=== PATIENT | female | born 1950 | race Caucasian/White ===

== ENCOUNTER 2019-04-06 15:54 | Observation (INO) | payer MEDICARE ==
[~2019-04-06] VITALS: Ht 162.6 cm; Wt 120.2 kg
[~2019-04-06 15:54] MED LIST: ALBU90OI INH; BUSP15 PO; CENTRUM SILVER1 EAC2 PO; CLOB.05TC TOP; CONESTTC VAG; DILTIAZEM 24HR180 MG PO; ENOX40I SC; Estradiol1 MG PO; LOSHYD PO; METR70GEL VAG; OMEP20ER PO; OXYB5 PO; ROXICODONE5 MG PO; SOLI5 PO; SUCR1 PO; TRIA80TC TOP; Zofran Odt4 MG SL
[2019-04-06 16:35] LABS: BASOPHILS ABSOLUTE AUTO 0.03 K/mm3 (0.00-0.23); BASOPHILS PERCENT AUTO 1 % (0-2); EOSINOPHILS ABSOLUTE AUTO 0.07 K/mm3 (0.00-0.68); EOSINOPHILS PERCENT AUTO 2 % (0-6); Hematocrit 45.3 % (33.0-51.0); Hemoglobin 15.2 g/dL (11.5-16.0); IMMATURE GRAN ABSOLUTE AUTO 0.01 K/mm3 (0.00-0.10); IMMATURE GRAN PERCENT AUTO 0 % (0-1); LYMPHOCYTES ABSOLUTE AUTO 0.63 K/mm3 (0.84-5.20); LYMPHOCYTES PERCENT AUTO 16 % (21-46); MONOCYTES PERCENT AUTO 10 % (4-13); Mean Corpuscular HGB 31.5 pg (26.0-34.0); Mean Corpuscular HGB Conc 33.6 g/dL (31.5-36.5); Mean Corpuscular Volume 94 fL (80-100); NEUTROPHILS ABSOLUTE AUTO 2.93 K/mm3 (1.96-9.15); NEUTROPHILS PERCENT AUTO 72 % (41-73); Platelet Count 248 K/mm3 (150-400); RDW Coefficient Variation 13.1 % (11.7-14.2); RDW Standard Deviation 45.3 fL (35.1-46.3); Red Blood Cell Count 4.82 M/mm3 (3.80-5.20); White Blood Cell Count 4.07 K/mm3 (4.00-11.30)
[2019-04-06 17:02] LABS: Source, Urine Clean Catch
[2019-04-06 17:07] LABS: Bilirubin, Urine Neg (Neg); Blood, Urine 1+ (Neg); Glucose Qualitative, Urine Neg (Neg); Ketones, Urine Neg (Neg); Leukocyte Esterase, Urine 1+ (Neg); Nitrite, Urine Neg (Neg); Protein, Urine Neg (Neg); Urobilinogen, Urine NORM (Normal)
[2019-04-06 17:17] LABS: Appearance, Urine Clear (Clear); Color, Urine Yellow (P-Yellow)
[2019-04-06 17:18] LABS: Alanine Aminotransfer (ALT/SGP 20 U/L (12-78); Albumin/Globulin Ratio 0.8 (0.8-1.8); Alk Phos 110 U/L (50-136); Anion Gap 2 mmol/L (6-16); Aspartate Aminotrans (AST/SGOT 16 U/L (12-37); Bilirubin, Total 0.3 mg/dL (0.1-1.0); Blood Urea Nitrogen 14 mg/dL (8-24); Bun/Creatinine Ratio 16.9 (12.0-20.0); CO2, Blood 32 mmol/L (21-32); Calcium, Blood 8.7 mg/dL (8.5-10.1); Chloride, Blood 107 mmol/L (98-108); Creatinine, Blood 0.83 mg/dL (0.40-1.00); Globulin, Blood 3.6 g/dL (2.2-4.0); Glomerular Filtration Rate >60 (60-); Glucose, Blood 175 mg/dL (70-99); Potassium, Blood 3.5 mmol/L (3.5-5.5); Sodium, Blood 141 mmol/L (136-145); Total Protein, Blood 6.6 g/dL (6.4-8.2)
[2019-04-06 17:19] LABS: Bacteria Mod /hpf; Squamous Epithelial Cells Few /hpf (Few)
[2019-04-06 17:22] LABS: U Amphetamine Screen Not Detected; U Barbituate Screen Not Detected; U Benzodiazapine Screen DETECTED; U Cannabinoids Screen DETECTED; U Cocaine Screen Not Detected; U Methadone Screen Not Detected; U Methamphetamine Screen Not Detected; U Opiates Screen Not Detected; U Phencyclidine Screen Not Detected
[2019-04-06 17:23] LABS: U Buprenorphine Screen Not Detected; U Oxycodone Screen Not Detected; U Propoxyphene Screen Not Detected
[2019-04-06 17:28] LABS: Troponin I <0.015 ng/mL (0.000-0.040)
[2019-04-06] MEDS ORDERED: PANT40 PO (17:34)
[2019-04-06] MEDS ORDERED: DESVENLAFAXINE100 M2 PO (17:34)
[2019-04-06] MEDS ORDERED: DILT180 PO (17:35)
[2019-04-06] MEDS ORDERED: LOSARTAN-HCTZ1 EAC2 PO (17:35)
[2019-04-06] MEDS ORDERED: TEMA15 PO (17:36)
[2019-04-06] MEDS ORDERED: AMIT25 PO (17:37)
[2019-04-06] MEDS ORDERED: Oxybutynin Chlo10 MG PO (18:39)
[2019-04-07 04:19] LABS: Hematocrit 41.9 % (33.0-51.0); Hemoglobin 13.9 g/dL (11.5-16.0); Mean Corpuscular HGB 31.5 pg (26.0-34.0); Mean Corpuscular HGB Conc 33.2 g/dL (31.5-36.5); Mean Corpuscular Volume 95 fL (80-100); Mean Platelet Volume 10.9 fL (9.1-12.4); Platelet Count 236 K/mm3 (150-400); RDW Coefficient Variation 13.2 % (11.7-14.2); RDW Standard Deviation 46.4 fL (35.1-46.3); Red Blood Cell Count 4.41 M/mm3 (3.80-5.20); White Blood Cell Count 5.06 K/mm3 (4.00-11.30)
[2019-04-07 04:50] LABS: Anion Gap 6 mmol/L (6-16); Blood Urea Nitrogen 16 mg/dL (8-24); Bun/Creatinine Ratio 20.9 (12.0-20.0); CO2, Blood 29 mmol/L (21-32); Calcium, Blood 8.7 mg/dL (8.5-10.1); Chloride, Blood 105 mmol/L (98-108); Creatinine, Blood 0.77 mg/dL (0.40-1.00); Glomerular Filtration Rate >60 (60-); Glucose, Blood 99 mg/dL (70-99); Potassium, Blood 3.6 mmol/L (3.5-5.5); Sodium, Blood 140 mmol/L (136-145)
--- NOTE | 2019-04-07 06:30 | NUR ---
PATIENT STATES SHE HAS ANXIETY. PATIENT STRUGGLING TO SLEEP IN NEW PLACE. PATIENT PLEASANT AND TALKITIVE WITH STAFF. VITALS STABLE CURRENTLY IN SINUS RHYTHM. PATIENT STATES SHE FEELS FLUTTERS IN HER CHEST FREQUENTLY.
--- NOTE | 2019-04-07 08:03 | NUR ---
NURSING PCU DAYSHIFT: Assumed care of pt at approx 0700. A/O, pleasant, cooperative w/care. Denies any pain/discomfort at rest, no noted weakness. Ambulates independently and w/o difficulty. Tele in place, NSR, no c/o CP/pressure, SBP 150's prior to a.m. meds, no noted edema. L/S cta t/o, denies dyspea, O2 sat upper 90's on RA, no noted cough. Abd SNT, BT+, voiding w/o difficulty. PIV x1, s/l. Pt denies any current needs or questions regarding plan of care. food quality technician currently at bedside for imaging. Pt is anticipating possible discharge home, awaiting rounding from PMD, cont to monitor for changes.
--- NOTE | 2019-04-07 08:45 | NUR ---
Echocardiogram completed.
--- NOTE | 2019-04-07 10:53 | NUR ---
Spiritual care/Advance directive education visit conducted. Patient is lying in bed and alert. Patient openly shares about her life (starting with childhood), her family and her carrol (Hoahaoism background more nondenomenational today). Patient expresses fears and concerns. I provide empathic listening, pastoral drapery counselor and prayer. I conduct a life review and explore patient's spiritual journey. Patient responds well and shows signs of restored carrol increased peace. Patient also admits to having an interest in the advance directive. I hand patient the advance directive booklet and go through each section. I emphasis the importance and explain the process. Patient affirms comprehension. Patient states that she will go through and fill it out at a later time.
--- NOTE | 2019-04-07 17:38 | NUR ---
NURSING PCU DAYSHIFT SUMMARY: No significant changes noted t/o the shift. Pt has remained in NSR, no c/o CP/pressure, hypertensive t/o shift. Seen by PMD, new d/o received, plan for possible discharge home tomorrow. Family at bedside t/o majority of the shift, plan of care discussed, questions addressed. Pt denies any questions/needs at this time, call light in reach, cont to monitor until rpt is given to NOC RN.
[2019-04-08 04:38] LABS: Anion Gap 7 mmol/L (6-16); Blood Urea Nitrogen 18 mg/dL (8-24); Bun/Creatinine Ratio 21.2 (12.0-20.0); CO2, Blood 31 mmol/L (21-32); Calcium, Blood 8.9 mg/dL (8.5-10.1); Chloride, Blood 105 mmol/L (98-108); Creatinine, Blood 0.85 mg/dL (0.40-1.00); Glomerular Filtration Rate >60 (60-); Glucose, Blood 90 mg/dL (70-99); Sodium, Blood 143 mmol/L (136-145)
--- NOTE | 2019-04-08 05:31 | NUR ---
PATIENT ABLE TO GET SOME SLEEP TONIGHT. PATIENT DENIES ANY PAIN OR NEEDS. CALL LIGHT WITH IN REACH. PATIENT MOVING AROUND INDEPENDENTLY IN ROOM.
--- NOTE | 2019-04-08 10:15 | NUR ---
pt sleeping this am let her sleep until she woke, she is a/ox3, pleasant and cooperative with care, follows commands well, denies complaints, states she had a very good night, lungs are clear t/o, resp even and unlabored, no cough noted, hrr, murmur noted, tele in place running sr per monitor, see strip, no edema noted, ppp+2, cap refill <3sec, vs htn, gave po meds, will recheck, , afebrile, iv site is clear and patent, btx4, abd round soft nontender, voids without diff, skin c/w/d, maew, karma, call light in reach.
[2019-04-08] MEDS ORDERED: DILT120 PO (12:10)
[2019-04-08] MEDS ORDERED: XARELTO20 MG PO (12:11)
--- NOTE | 2019-04-08 12:49 | NUR ---
b/p is improved, notified Dr. Buchanan she ok for discharge. went over discharge instructions with pt. she verbalized understanding, [facility], spoke with her about bleeding risk with xarelto, and gave her preprinted infor to read. iv removed intact, left via wheelchair with gravure printing machinist in attendence, and all her belongings.
== END 2019-04-08 12:53 | disposition home or self-care (01) ==
LOC: ER 15:54 → PCU 18:44
PROVIDERS: Emergency Medicine; Internal Medicine; Nurse Practitioner Acute Care; ADMIT Internal Medicine
DX: I48.91 Unspecified atrial fibrillation (principal); E87.6 Hypokalemia; I10 Essential (primary) hypertension; F41.9 Anxiety disorder, unspecified; F32.9 Major depressive disorder, single episode, unspecified; K21.9 Gastro-esophageal reflux disease without esophagitis; E66.01 Morbid (severe) obesity due to excess calories; Z88.5 Allergy status to narcotic agent; Z79.899 Other long term (current) drug therapy; Z90.49 Acquired absence of other specified parts of digestive tract; Z85.038 Personal history of other malignant neoplasm of large intestine
CPT/HCPCS: 36415; 71046; 80048; 80053; 81001; 83690; 83735; 83880; 84443; 84484; 85025; 85027; 87086; 93005; 93010; 93306; 96361; 96374; 99285-25; G0378; J7030

== ENCOUNTER 2020-11-19 08:44 | Day surgery (SDC) | payer OTHER ==
[~2020-11-19] VITALS: Ht 162.6 cm; Wt 125.1 kg
[~2020-11-19 08:44] MED LIST changes: +AMIT25 PO; +AMLO5 PO; +Atarax10 MG PO; +BUPR150ER PO; +CARV6.25 PO; +CLON.5 PO; +DESVENLAFAXINE100 M2 PO; +DILT120 PO; +DILT180 PO; +Flecainide Acet50 MG PO; +LOSARTAN-HCTZ1 EAC2 PO; +Oxybutynin Chlo10 MG PO; +PANT40 PO; +TEMA15 PO; +TIZA4 PO; +XARELTO20 MG PO
--- NOTE | 2020-11-19 09:27 | NUR ---
11/19/20 0927 Sajan Domingo History, Chart, Medications and Allergies reviewed before start of procedure.MONITOR INTACT WITH CONTINUOUS PULSE OXIMETRY AND INTERMITTENT BP.3-LEAD EKG REVIEWED WITH PHYSICIAN PRIOR TO START OF PROCEDURE.O2 VIA N/C INTACT THROUGHOUT SEDATION/PROCEDURE. History, Chart, Medications and Allergies reviewed before start of procedure. Patient confirms NPO status and agrees with scheduled surgery.
--- NOTE | 2020-11-19 09:44 | NUR ---
Ambulatory in Day Surgery History, Chart, Medications and Allergies reviewed before start of procedure. Lungs clear T/O to Auscultation. Patient confirms NPO status and agrees with scheduled surgery. Pre-Op teaching done. Pt verbalizes understanding. Patient States Post-Procedure ride home has been arranged.
--- NOTE | 2020-11-19 11:06 | NUR ---
DISCHARGE SUMMARY PT A&OX4, VSS, LEFT VIA WC WITH DC VOLUNTEER TO GO HOME WITH ALL PERSONAL POSSESSIONS. CHERYL H2O. IV DC'D. Patient up to Ambulate independently. Gait steady. Discharge instructions reviewed with patient. Patient verbalizes understanding. Copy given to patient to take home.
== END 2020-11-19 11:00 | disposition home or self-care (01) ==
LOC: ORSCMMR 08:44 → ORD 09:30 → ORSCMMR 09:30
PROVIDERS: Internal Medicine Gastroenterology
PROC: 0DBK8ZX Excision of Ascending Colon, Via Natural or Artificial Opening Endoscopic, Diagnostic (ICD-10-PCS; principal; 2020-11-19 09:30)
PROC: 0DBL8ZX Excision of Transverse Colon, Via Natural or Artificial Opening Endoscopic, Diagnostic (ICD-10-PCS; principal; 2020-11-19 09:30)
DX: Z12.11 Encounter for screening for malignant neoplasm of colon (principal); Z85.038 Personal history of other malignant neoplasm of large intestine; D12.2 Benign neoplasm of ascending colon; D12.3 Benign neoplasm of transverse colon; E66.01 Morbid (severe) obesity due to excess calories; Z68.42 Body mass index [BMI] 45.0-49.9, adult; I10 Essential (primary) hypertension; I48.91 Unspecified atrial fibrillation; K21.9 Gastro-esophageal reflux disease without esophagitis; Z79.01 Long term (current) use of anticoagulants; Z79.899 Other long term (current) drug therapy
CPT/HCPCS: 88305; J2250; J3010; J7120

== ENCOUNTER 2023-03-04 17:39 | Emergency (ER) | payer OTHER ==
[~2023-03-04] VITALS: Ht 162.6 cm; Wt 127.5 kg
[2023-03-04 18:21] LABS: BASOPHILS ABSOLUTE AUTO 0.04 K/mm3 (0.00-0.23); BASOPHILS PERCENT AUTO 1 % (0-2); EOSINOPHILS ABSOLUTE AUTO 0.05 K/mm3 (0.00-0.68); EOSINOPHILS PERCENT AUTO 1 % (0-6); Hematocrit 43.4 % (33.0-51.0); Hemoglobin 14.8 g/dL (11.5-16.0); IMMATURE GRAN ABSOLUTE AUTO 0.05 K/mm3 (0.00-0.10); IMMATURE GRAN PERCENT AUTO 1 % (0-1); LYMPHOCYTES ABSOLUTE AUTO 1.79 K/mm3 (0.84-5.20); LYMPHOCYTES PERCENT AUTO 23 % (21-46); MONOCYTES ABSOLUTE AUTO 0.78 K/mm3 (0.16-1.47); MONOCYTES PERCENT AUTO 10 % (4-13); Mean Corpuscular HGB 30.6 pg (26.0-34.0); Mean Corpuscular HGB Conc 34.1 g/dL (31.5-36.5); Mean Corpuscular Volume 90 fL (80-100); Mean Platelet Volume 10.5 fL (9.1-12.4); NEUTROPHILS ABSOLUTE AUTO 5.09 K/mm3 (1.96-9.15); NEUTROPHILS PERCENT AUTO 65 % (41-73); Platelet Count 279 K/mm3 (150-400); RDW Coefficient Variation 14.2 % (11.7-14.2); RDW Standard Deviation 46.5 fL (35.1-46.3); Red Blood Cell Count 4.84 M/mm3 (3.80-5.20)
[2023-03-04 18:56] LABS: Albumin, Blood 3.2 g/dL (3.4-5.0); Albumin/Globulin Ratio 0.7 (0.8-1.8); Bilirubin, Total 0.2 mg/dL (0.1-1.0); Bun/Creatinine Ratio 23.1 (12.0-20.0); Calcium, Blood 8.7 mg/dL (8.5-10.1); Creatinine, Blood 0.91 mg/dL (0.40-1.00); Globulin, Blood 4.4 g/dL (2.2-4.0); Potassium, Blood 3.2 mmol/L (3.5-5.5); Total Protein, Blood 7.6 g/dL (6.4-8.2)
[2023-03-04] MEDS ORDERED: LORA.5 PO (21:23)
[2023-03-04] MEDS ORDERED: CELE200 PO (21:23)
[2023-03-04] MEDS ORDERED: KETO15TC TOP (21:24)
[2023-03-04] MEDS ORDERED: TRIA15CR3 TOP (21:25)
[2023-03-04] MEDS ORDERED: OZEMPIC2 MG/0.75 SC (21:27)
[2023-03-04] MEDS ORDERED: ALENDRONATE SOD35 M1 PO (21:29)
[2023-03-04] MEDS ORDERED: TIZA4 PO (22:28)
[2023-03-04 22:49] VITALS: BP 128/74
== END 2023-03-04 22:50 | disposition home or self-care (01) ==
LOC: ER 17:39
PROVIDERS: Physician Assistant
DX: M54.9 Dorsalgia, unspecified (principal); E66.01 Morbid (severe) obesity due to excess calories; I10 Essential (primary) hypertension; Z88.5 Allergy status to narcotic agent; Z79.899 Other long term (current) drug therapy; Z79.02 Long term (current) use of antithrombotics/antiplatelets
CPT/HCPCS: 71046; 80053; 83690; 84484; 85025; 93005; 93010; 96374; 96375; 99284-25; A9270; J1885

== ENCOUNTER → 2023-08-06 | Outpatient (CLI) | payer OTHER ==
[~2023-08-06] MED LIST changes: +ALENDRONATE SOD35 M1 PO; +CELE200 PO; +KETO15TC TOP; +LORA.5 PO; +OZEMPIC2 MG/0.75 SC; +TRIA15CR3 TOP
== END ==
LOC: LAB SHORT 07:54 → LAB 07:54
DX: L81.9 Disorder of pigmentation, unspecified (principal); L57.0 Actinic keratosis
CPT/HCPCS: 88305

== ENCOUNTER → 2023-09-17 | Outpatient (CLI) | payer OTHER ==
[2023-09-25 05:10] LABS: HPV GENOTYPE 16 Not Detected; HPV GENOTYPE 18 Not Detected; HPV HIGH RISK Not Detected; HPV SOURCE Cervical
== END ==
LOC: LAB SHORT 17:01 → LAB 17:01
PROVIDERS: Family Medicine
DX: Z01.419 Encounter for gynecological examination (general) (routine) without abnormal findings (principal)
CPT/HCPCS: 87624; G0123

== ENCOUNTER 2024-10-11 07:03 | Day surgery (SDC) | payer OTHER ==
[~2024-10-11] VITALS: Ht 162.6 cm; Wt 122.5 kg
[~2024-10-11 07:03] MED LIST changes: +ABILIFY MYCITE2 M2 PO; +AMIODARONE HCL100 M3 PO; +Budeprion Xl300 MG PO; +EUTHYROX50 MCG PO; +Estrace Vagin42.5 GM VAG; +HYDR10 PO; +Lactated Ringer's 1,000 ML IV SCH; +MELO7.5 PO; +MULTI-VITAMIN1 EAC2 PO; +ONDA4ODT MM; +OZEMPIC0.25 MG/02 SC; +VITAMIN D5000 UNIT PO
[2024-10-11] MEDS ORDERED: LOSA25 PO (07:51)
[2024-10-11 08:02] VITALS: BP 153/94
[2024-10-11] MEDS ORDERED: propofoL 60 ML IV ONE (09:03)
--- NOTE | 2024-10-11 09:12 | NUR ---
10/11/24 0912 Sajan Domingo History, Chart, Medications and Allergies reviewed before start of procedure.MONITOR INTACT WITH CONTINUOUS PULSE OXIMETRY, CONTINUOUS END TITAL CO2, 3-LEAD EKG AND INTERMITTENT BLOOD PRESSURE.3-LEAD EKG REVIEWED WITH PHYSICIAN PRIOR TO START OF PROCEDURE.O2 VIA POM INTACT THROUGHOUT SEDATION/PROCEDURE.See Anesthesia record.
[2024-10-11 09:40] VITALS: BP 127/71
[2024-10-11] MEDS ORDERED: Ondansetron HCl 2 MG / ML 2ML Vial IV PRN (09:55)
--- NOTE | 2024-10-11 10:03 | NUR ---
Discharge instructions reviewed with patient. Patient verbalizes understanding. Copy given to patient to take home. Patient States Post-Procedure ride home has been arranged. Discharged via wheelchair to private car for ride home.
== END 2024-10-11 10:04 | disposition home or self-care (01) ==
LOC: ORSCMMR 07:03 → ORD 09:00 → ORSCMMR 10:04
PROVIDERS: Internal Medicine Gastroenterology
PROC: 0DBM8ZX Excision of Descending Colon, Via Natural or Artificial Opening Endoscopic, Diagnostic (ICD-10-PCS; principal; 2024-10-11 09:00)
DX: Z85.048 Personal history of other malignant neoplasm of rectum, rectosigmoid junction, and anus (principal); Z86.0101 Personal history of adenomatous and serrated colon polyps; D12.4 Benign neoplasm of descending colon; K21.9 Gastro-esophageal reflux disease without esophagitis; E03.9 Hypothyroidism, unspecified; F99 Mental disorder, not otherwise specified; I48.0 Paroxysmal atrial fibrillation; I10 Essential (primary) hypertension; I48.91 Unspecified atrial fibrillation; N39.41 Urge incontinence; E66.01 Morbid (severe) obesity due to excess calories; Z68.42 Body mass index [BMI] 45.0-49.9, adult; Z79.01 Long term (current) use of anticoagulants; Z79.899 Other long term (current) drug therapy
CPT/HCPCS: 88305; 93005; 93010; J2704; J7120